=== PATIENT | female | born 1980 | race Caucasian/White ===

== ENCOUNTER 2022-04-08 13:32 | Outpatient (CLI) | payer OTHER, SELFPAY ==
--- NOTE | 2022-04-08 13:45 | MR_ITS ---
[address] [address] Phone:?[phone] Fax:?[phone] Referring Physician Information: Bala Krueger M.D. [address] [facility] [address] Phone:?[phone] Fax:?[phone] Patient:Yadiel Sanz D.O.B:?1980 Sex:?Female Phone:?[phone] [facility] MRN:?[id number] Exam Date:?04/08/2022 ? EXAM: MRI of the LEFT SHOULDER, without contrast CLINICAL HISTORY: Left shoulder pain without reported traumatic injury or previous surgery. Concern for rotator cuff tear and biceps tear. COMPARISONS: None available. TECHNICAL: MRI sequences of the left shoulder: Axials: PD, T2 Coronals: PD, STIR, T2 Sagittals: PD, T2 SEDATION: None CONTRAST: None FINDINGS: Bones: No fracture or suspicious bone marrow signal abnormality. Coracoacromial arch: Acromion: No os acromiale. Type I-II acromion. Acromiohumeral space: The bony distance is unremarkable. Coracohumeral space: The bony distance is unremarkable. Acromioclavicular joint: No acute injury, arthropathy, or inferior hypertrophy. Coracoclavicular ligament: The coracoclavicular ligament is intact. Rotator cuff muscles/tendons: Supraspinatus: There is interstitial delamination and mild tendinopathy of the supraspinatus tendon measuring 1.1 cm in AP dimension by 2.0 cm in transverse dimension and some degree of ill-defined partial thickness intrasubstance/interstitial partial tearing is also suspected best seen on coronal series 4 and 5 image 10 and sagittal series 8 images 7 through 9. No muscular atrophy. Infraspinatus: The infraspinatus tendon and muscle are intact. Teres minor: The teres minor tendon and muscle are intact. Subscapularis: The subscapularis tendon and muscle are intact. Labrum and glenohumeral joint: No evidence of labral tear although evaluation is suboptimal because of nonarthrogram technique. Physiologic amount of joint fluid. No full-thickness chondral defect or subchondral bone marrow edema/cystic change is seen. No convincing evidence of capsular edema or thickening although evaluation is suboptimal because of lack of joint distention. Proximal biceps tendon, long head and short heads: The long and short heads of the proximal biceps tendon are intact. Bursae: Subacromial/subdeltoid: No convincing subacromial bursal thickening/bursitis. Subcoracoid: No convincing subcoracoid bursal thickening/bursitis. IMPRESSION: 1. 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 2. No atrophy of the rotator cuff musculature. 3. Intact biceps tendon. RCB Electronically signed on 04/09/2022 7:43:00 AM by Rex Salguero M.D.
== END 2022-04-08 13:33 | disposition home or self-care (01) ==
LOC: MRI 13:33
PROVIDERS: PCP Physician Assistant Medical; Visit Provider Orthopaedic Surgery Sports Medicine
DX: M25.512 Pain in left shoulder (principal); M75.102 Unspecified rotator cuff tear or rupture of left shoulder, not specified as traumatic; S46.212A Strain of muscle, fascia and tendon of other parts of biceps, left arm, initial encounter; M75.42 Impingement syndrome of left shoulder
CPT/HCPCS: 73221

== ENCOUNTER 2022-05-03 13:45 | Outpatient (CLI) | payer OTHER, SELFPAY ==
--- NOTE | 2022-05-03 14:00 | CRLHL7_ITS ---
For Patients: As a result of the Century Cures Act, medical imaging exams and procedure reports are released immediately into your electronic medical record. You may view this report before your referring provider. If you have questions, please contact your health care provider. BILATERAL SCREENING MAMMOGRAM WITH COMPUTER-AIDED DETECTION AND TOMOSYNTHESIS TECHNIQUE: CC and MLO views were obtained. These mammographic images have been obtained using full-field digital technique. These mammographic images were interpreted with the benefit of computer-aided detection. Breast Tomosynthesis was used in this interpretation. COMPARISON FILM: 04/20/21. FINDINGS: The breasts are heterogeneously dense, which may obscure small masses IMPRESSION: There is no radiographic evidence for malignancy. ASSESSMENT: BI-RADS Category 1: Negative RECOMMENDATION: Routine screening mammogram in 1 year. A lay language report of this examination will be provided to the patient. Tip Bailey M.D. Diagnostic Radiologist [email or web address] Transcribed: 1:35 p.mike ramirez/Dictated by: Tip Bailey MD @ 05/04/2022 10:05:00 AM (Electronically Signed)
== END 2022-05-03 13:46 | disposition home or self-care (01) ==
LOC: MAMMO 13:46
PROVIDERS: PCP Physician Assistant Medical; Visit Provider Physician Assistant Medical
DX: Z12.31 Encounter for screening mammogram for malignant neoplasm of breast (principal); R92.2 Inconclusive mammogram
CPT/HCPCS: 77063; 77067

== ENCOUNTER 2023-06-22 11:14 | Outpatient (CLI) | payer OTHER, SELFPAY ==
--- NOTE | 2023-06-22 11:30 | MM_ITS ---
Patient: JILLIAN GARRIDO Facility:?[facility] Patient ID:?[id number] Site Patient ID:?[id number]. Site :?1980 Study:?XRay-Breast Bilateral 3D W/CAD-06/22/2023 11:37:38 AM Ordering Physician:Jazmine España Final Report: BILATERAL SCREENING MAMMOGRAM WITH COMPUTER-AIDED DETECTION AND TOMOSYNTHESIS TECHNIQUE: CC and MLO views were obtained. These mammographic images have been obtained using full-field digital technique. These mammographic images were interpreted with the benefit of computer-aided detection. Breast Tomosynthesis was used in this interpretation. COMPARISON FILM: 05/03/22, 04/20/21. FINDINGS: The breasts are heterogeneously dense, which may obscure small masses. IMPRESSION: There is no radiographic evidence for malignancy. ASSESSMENT: BI-RADS Category 1: Negative RECOMMENDATION: Routine screening mammogram in 1 year. A lay language report of this examination will be provided to the patient. Tip Bailey M.D. Diagnostic Radiologist [email or web address] DSM/sp R& Transcribed: 6:46 p.m. SP/Dictated by: Tip Bailey MD @ 06/23/2023 1:04:00 PM Signed by:?Tip Bailey MD @06/24/2023 11:26:39 AM (Electronic Signature)
== END 2023-06-22 11:15 | disposition home or self-care (01) ==
LOC: MAMMO 11:16
PROVIDERS: PCP Physician Assistant Medical; Visit Provider Physician Assistant Medical
DX: Z12.31 Encounter for screening mammogram for malignant neoplasm of breast (principal); R92.2 Inconclusive mammogram
CPT/HCPCS: 77063; 77067

== ENCOUNTER 2024-10-16 16:33 | Outpatient (CLI) | payer OTHER, SELFPAY ==
--- NOTE | 2024-10-16 16:40 | CRLHL7_ITS ---
For Patients: As a result of the Century Cures Act, medical imaging exams and procedure reports are released immediately into your electronic medical record. You may view this report before your referring provider. If you have questions, please contact your health care provider. INDICATION: BIALTERAL SCREENING MAMMOGRAM, ASYMPOTMATIC 44 Y/O FEMALE COMPARISON: 04/20/2021, 05/03/2022, 06/22/2023 TECHNIQUE: Digital mammogram in CC and MLO projections including computer-aided detection (CAD) and tomosynthesis. BREAST COMPOSITION: The breasts are heterogeneously dense, which may obscure small masses. FINDINGS: No suspicious findings. ASSESSMENT: BI-RADS 1 Negative RECOMMENDATION: Annual screening mammogram. A lay language report of this examination will be provided to the patient. Dictated by: Cheli Noonan MD @ 10/18/2024 22:48:47 (Electronically Signed)
== END 2024-10-16 16:34 | disposition home or self-care (01) ==
LOC: MAMMO 16:34
PROVIDERS: PCP Physician Assistant Medical; Visit Provider Physician Assistant Medical
DX: Z12.31 Encounter for screening mammogram for malignant neoplasm of breast (principal); R92.333 Mammographic heterogeneous density, bilateral breasts
CPT/HCPCS: 77063; 77067